=== PATIENT | female | born 2000 | race Caucasian/White ===

== ENCOUNTER 2018-05-04 19:19 | Outpatient (CLI) | payer MEDICAID | END 2018-05-04 19:20 | disposition critical access hospital (66) | LOC: EMS 19:19 | PROVIDERS: ATTEND Surgery | DX: R56.9 Unspecified convulsions (principal) | CPT/HCPCS: A0425; A0427; A0999 ==

== ENCOUNTER 2018-05-04 19:34 | Emergency (ER) | payer MEDICAID ==
[2018-05-04] MEDS ORDERED: SODIUM CHLORIDE 0.9% 1,000 ML IV ONE (20:17)
--- NOTE | 2018-05-04 20:20 | ED Physician Documentation ---
PD HPI SEIZURE - Stated complaint Stated Complaint: SEIZURE - Chief complaint Chief Complaint: Neuro - History obtained from History obtained from: Patient, Family - History of Present Illness Timing - onset: Today Witnessed: Witnessed Number of seizures: Single, Lasted minutes Description of seizure activity: Focal Injury during seizure: None History of seizures: First seizure Contributing factors: Sleep deprivation Similar symptoms before: Has not had sx before Recently seen: Not recently seen - Additional information Additional information: Patient is a 17 year old female presenting to the emergency department for seizure like activity. Family reports that the patient has a history of severe anxiety and commonly has night terrors. Family reports that at the end of the night terror today the patient had screamed out and when the family came in the room patients arms were shaking to the right and her eyes seemed to be rolled back. the episode lasted a few seconds before the patient came to. Patient states that she was up all night writing and was trying to sleep in a hot, non ventilated room. Review of Systems Constitutional: denies: Fever, Chills Eyes: denies: Photophobia Cardiac: denies: Chest pain / pressure, Palpitations Respiratory: denies: Dyspnea, Cough GI: denies: Nausea, Vomiting : denies: Dysuria, Frequency Neurologic: reports: Seizure, Headache Immunocompromised: denies: Immunocompromised PD PAST MEDICAL HISTORY - Past Medical History Past Medical History: No GI: GERD Psych: Anxiety Other Past Medical History: Autism, night terrors. - Past Surgical History Past Surgical History: No - Present Medications Home Medications: Ambulatory Orders Medication Instructions Recorded Confirmed No Known Home Medications [No 05/04/18 05/04/18 Known Home Medications] - Allergies Allergies/Adverse Reactions: Allergies Allergy/AdvReac Type Severity Reaction Status Date / Time No Known Drug Allergies Allergy Verified 05/04/18 19:41 - Social History Does the pt smoke?: No Smoking Status: Never smoker Does the pt drink ETOH?: No Does the pt have substance abuse?: No PD ED PE NORMAL - Vitals Vital signs reviewed: Yes - General General: Alert and oriented X 3, No acute distress - HEENT HEENT: Atraumatic, PERRL, Ears normal, Moist mucous membranes - Neck Neck: Supple, no meningeal sign - Cardiac Cardiac: RRR, No murmur, No rub - Respiratory Respiratory: No respiratory distress - Abdomen Abdomen: Soft - Derm Derm: Normal color, Warm and dry, No rash - Extremities Extremities: No deformity - Neuro Neuro: Alert and oriented X 3, senior treasury analyst 2-12 intact, No motor deficit, Normal speech Eye Opening: Spontaneous Motor: Obeys Commands Verbal: Oriented GCS Score: 15 Results - Vitals Vitals: Vital Signs - 24 hr 05/04/18 05/04/18 05/04/18 19:37 21:50 23:05 Temperature 36.9 C 36.8 C Heart Rate 111 H 82 85 Respiratory 18 20 16 Rate Blood Pressure 116/75 110/78 113/71 O2 Saturation 96 98 99 Oxygen O2 Source Room air - Labs Labs: Laboratory Tests 05/04/18 05/04/18 05/04/18 20:30 20:30 20:30 WBC 9.7 RBC 4.53 Hgb 12.3 Hct 35.5 L MCV 78.3 L MCH 27.2 MCHC 34.7 RDW 14.4 Plt Count 432 MPV 8.1 Neut # (Auto) 7.6 H Lymph # (Auto) 1.4 L [place] # (Auto) 0.6 Eos # (Auto) 0.1 Baso # (Auto) 0.1 Absolute Nucleated RBC 0.00 Nucleated RBC % 0.0 Sodium 136 Potassium 3.4 L Chloride 102 Carbon Dioxide 26 Anion Gap 8.0 BUN 10 Creatinine 0.7 Estimated GFR (MDRD) 108 Glucose 97 Calcium 8.9 Phosphorus 2.8 Magnesium 2.2 Total Bilirubin 0.5 AST 24 ALT 13 Alkaline Phosphatase 72 Total Protein 7.4 Albumin 3.8 Globulin 3.6 Albumin/Globulin Ratio 1.1 Lipase 22 Urine Color YELLOW Urine Clarity HAZY Urine pH 5.5 Ur Specific [place] 1.025 Urine Protein NEGATIVE Urine Glucose (UA) NEGATIVE Urine Ketones NEGATIVE Urine Occult Blood LARGE H Urine Nitrite NEGATIVE Urine Bilirubin NEGATIVE Urine Urobilinogen 0.2 (NORMAL) Ur Leukocyte Esterase NEGATIVE Urine RBC 11-25 H Urine WBC 0-3 Ur Squamous Epith Cells MOD Squamous H Urine Bacteria Rare Ur Microscopic Review INDICATED Urine Culture Comments NOT INDICATED - Rads (name of study) ct head Radiology: Final report received (6.9 cm frontal lobe mass extending into bilateral ventricles causing mass effect) PD MEDICAL DECISION MAKING - ED course Complexity details: reviewed old records, reviewed results, re-evaluated patient , considered differential, d/w patient, d/w family ED course: Patient was seen and examined at bedside. Patient was awake, alert and oriented in no acute distress. Patient had no focal deficits. IV access was gained and labs were drawn. Urine was collected. imgagin was ordered. when patient returned from imaging results were reviewed. Patient was found to have a 6.9 cm mass with mass effect. [facility] neurology was contacted and the case was discussed with Dr. Lacey who recommended loading the patient and transferring. patient was loaded with keppra 1000mg and arrangements were made for transfer. - Sepsis Event Vital Signs: Vital Signs - 24 hr 05/04/18 05/04/18 05/04/18 19:37 21:50 23:05 Temperature 36.9 C 36.8 C Heart Rate 111 H 82 85 Respiratory 18 20 16 Rate Blood Pressure 116/75 110/78 113/71 O2 Saturation 96 98 99 Oxygen O2 Source Room air Departure - Departure Disposition: 02 Transfer Acute Care Hosp Clinical Impression: Seizure, Left frontal lobe mass Condition: Stable
[2018-05-04 20:46] LABS: BILIRUBIN,URINE NEGATIVE (NEGATIVE); GLUCOSE, URINE (UA) NEGATIVE (NEGATIVE); KETONES,URINE (UA) NEGATIVE (NEGATIVE); LEUKOCYTE ESTERASE, URINE NEGATIVE (NEGATIVE); NITRITE,URINE NEGATIVE (NEGATIVE); OCCULT BLOOD,URINE LARGE (NEGATIVE); PH,URINE 5.5 PH (5.0-7.5); PROTEIN,URINE NEGATIVE (NEGATIVE); UROBILINOGEN,URINE 0.2 (NORMAL) E.U./dL (NORMAL)
[2018-05-04 20:50] LABS: BASOPHILS # (AUTO) 0.1 10^3/uL (0.0-0.1); BASOPHILS % (AUTO) 0.9 %; EOSINOPHILS # (AUTO) 0.1 10^3/uL (0.0-0.7); EOSINOPHILS % (AUTO) 0.7 %; HGB - HEMOGLOBIN 12.3 g/dL (12.0-16.0); LYMPHOCYTES # (AUTO) 1.4 10^3/uL (1.5-3.5); LYMPHOCYTES % (AUTO) 14.1 %; MEAN CORPUSCULAR HEMOGLOBIN 27.2 pg (27.0-31.0); MEAN CORPUSCULAR HGB CONC 34.7 g/dL (32.0-36.0); MEAN CORPUSCULAR VOLUME 78.3 fL (81.0-99.0); MEAN PLATELET VOLUME 8.1 fL (7.9-10.8); MONOCYTES # (AUTO) 0.6 10^3/uL (0.0-1.0); NEUTROPHILS # (AUTO) 7.6 10^3/uL (1.5-6.6); NEUTROPHILS % (AUTO) 78.3 %; PLT - PLATELET COUNT 432 10^3/uL (130-450); RED BLOOD COUNT 4.53 10^6/uL (4.20-5.40); RED CELL DISTRIBUTION WIDTH 14.4 % (12.0-15.0); WHITE BLOOD COUNT 9.7 x10^3/uL (4.8-10.8)
[2018-05-04 20:52] LABS: CLARITY,URINE HAZY (CLEAR)
[2018-05-04 20:59] LABS: ALBUMIN 3.8 g/dL (3.2-5.5); ALBUMIN/GLOBULIN RATIO 1.1 (1.0-2.2); BILIRUBIN,TOTAL 0.5 mg/dL (0.2-1.0); CALCIUM 8.9 mg/dL (8.5-10.3); CREATININE 0.7 mg/dL (0.4-1.0); MAGNESIUM 2.2 mg/dL (1.7-2.8); PHOSPHORUS 2.8 mg/dL (2.5-4.6); TOTAL PROTEIN 7.4 g/dL (6.7-8.2)
[2018-05-04 21:03] LABS: BACTERIA,URINE Rare /HPF (None Seen); SQUAMOUS EPITHELIAL CELL,UR MOD Squamous (<= Few)
--- NOTE | 2018-05-04 21:59 | CT Report ---
Procedure Date: 05/04/2018 Accession Number: [id number] / [id number] Procedure: CT - Head W/O CPT Code: FULL RESULT: EXAM: CT HEAD EXAM DATE: 05/04/2018 09:20 PM. CLINICAL HISTORY: Seizure. COMPARISON: None. TECHNIQUE: Multiaxial CT images were obtained from the foramen magnum to the vertex. Reformats: Coronal. IV contrast: None. In accordance with CT protocol optimization, one or more of the following dose reduction techniques were utilized for this exam: automated exposure control, adjustment of mA and/or KV based on patient size, or use of iterative reconstructive technique. FINDINGS: Parenchyma: Along the frontal superior sagittal sinus region and extending into both anterior lateral ventricles is a lobulated mass which has maximal dimensions of 4.5 x 6.9 x 4.7 cm. Its primary density characteristics are those of fat with peripheral calcification. No intracranial hemorrhage. Ventricles: The right lateral ventricle is mildly dilated. Sinuses and Orbits: Imaged paranasal sinuses, orbits, and mastoids show no significant abnormality. Bones: No evidence of fracture or calvarial defect. Other: None. IMPRESSION: 1. 6.9 cm mass along the midline frontal brain extending into both lateral ventricles has a differential diagnosis of dermoid or atypical lipoma. Recommend MRI for further characterization. It causes mass effect on the right lateral ventricle and certainly could be the cause of the patient's seizure. RADIA
[2018-05-04] MEDS ORDERED: levETIRAcetam INJ 1,000 MG in SODIUM CHLORIDE 0.9% 100ML 100 ML IV STA (22:18)
[2018-05-04 23:05] VITALS: BP 113/71
== END 2018-05-05 00:33 | disposition short-term general hospital (02) ==
LOC: EDUNIT# → ED 19:34
DX: D43.0 Neoplasm of uncertain behavior of brain, supratentorial (principal); R56.9 Unspecified convulsions
CPT/HCPCS: 36415; 70450; 80053; 81001; 81003; 83690; 83735; 84100; 85025; 87086; 96361; 96365; 99284

== ENCOUNTER 2018-09-11 00:19 | Emergency (ER) | payer MEDICAID ==
--- NOTE | 2018-09-11 02:12 | ED Physician Documentation ---
PD HPI SKIN - Stated complaint Stated Complaint: RASH - Chief complaint Chief Complaint: Wound - History obtained from History obtained from: Patient, Family - History of Present Illness Timing - onset: How many days ago (2) Timing - duration: Days (2) Timing - details: Gradual onset, Still present Location: RLE, LLE Quality / character: Itchy Associated symptoms: Headache (similar to always). 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 Apparently she becomes grouchy with the Keppra. She is on her third week of increasing the lamictal and she has decreased her keppra by 500mg this week. The patient has developed a rash over the knees bilaterally that is slightly itchy and has progressed. She denies any involvement of the mucous membranes she denies any shortness of breath and she denies any other symptoms to suggest overactive immune system. Review of Systems Constitutional: denies: Fever, Chills, Myalgias, Fatigue Eyes: denies: Decreased vision Ears: denies: Ear pain Nose: denies: Congestion Throat: denies: Sore throat Cardiac: denies: Chest pain / pressure, Palpitations Respiratory: denies: Dyspnea, Cough GI: denies: Abdominal Pain, Nausea, Vomiting, Constipation, Diarrhea : denies: Dysuria, Frequency Skin: reports: Rash Musculoskeletal: denies: Neck pain, Back pain, Extremity pain Neurologic: denies: Generalized weakness, Focal weakness, Numbness PD PAST MEDICAL HISTORY - Past Medical History Past Medical History: Yes Neuro: Seizure disorder GI: GERD Psych: Anxiety - Past Surgical History Past Surgical History: No - Present Medications Home Medications: Ambulatory Orders Medication Instructions Recorded Confirmed No Known Home Medications 05/04/18 05/04/18 - Allergies Allergies/Adverse Reactions: Allergies Allergy/AdvReac Type Severity Reaction Status Date / Time No Known Drug Allergies Allergy Verified 09/11/18 00:27 - Social History Does the pt smoke?: No Smoking Status: Never smoker Does the pt drink ETOH?: No Does the pt have substance abuse?: No - Immunizations Immunizations are current?: Yes - POLST Patient has POLST: No PD ED PE NORMAL - Vitals Vital signs reviewed: Yes (normal ) - General General: Alert and oriented X 3, No acute distress, Well developed/nourished - HEENT HEENT: Atraumatic, PERRL, EOMI - Neck Neck: Supple, no meningeal sign, No bony TTP - Cardiac Cardiac: RRR, No murmur - Respiratory Respiratory: No respiratory distress, Clear bilaterally - Abdomen Abdomen: Normal bowel sounds, Soft, Non tender - Back Back: No CVA TTP, No spinal TTP - Derm Derm: Normal color, Warm and dry, Other (There are multiple 0.5cm pustules over the anterior thigh distally and extending to the pre-patellar area. ) - Extremities Extremities: No deformity, No edema - Neuro Neuro: Alert and oriented X 3, car pusher 2-12 intact, No motor deficit, No sensory deficit, Normal speech Eye Opening: Spontaneous Motor: Obeys Commands Verbal: Oriented GCS Score: 15 - Psych Psych: Normal mood, Normal affect Results - Vitals Vitals: Vital Signs - 24 hr 09/11/18 09/11/18 00:22 02:21 Temperature 36.7 C Heart Rate 92 72 Respiratory 17 16 Rate Blood Pressure 109/67 117/80 O2 Saturation 97 99 Oxygen O2 Source Room air PD MEDICAL DECISION MAKING - ED course Complexity details: considered differential, d/w patient, d/w family, d/w method consultant (will call order clerk neurologist [facility] recommends d/c of lamictal and restart to prior dose of keppra. ) ED course: 17-year-old female who is being titrated up on Lamictal and titrated down on her Keppra has developed a nonspecific rash over her anterior thigh and knee bilaterally. She does not have other signs and symptoms to be concerned for life-threatening rash associated with Lamictal. Her neurologist at [facility] is consulted by telephone and she recommends that we discontinue the Lamictal and move her dose back to its prior for her Keppra. The patient is in agreement with this and will follow up with her neurologist for further medication adjustments. Departure - Departure Disposition: 01 Home, Self Care Clinical Impression: Drug-induced skin rash Condition: Stable Instructions: ED Drug React Allergic Follow-Up: Freda Magana [Other] Comments: Today it appears you have a rash associated with Lamictal and you will need to discontinue the Lamictal. Please contact your neurologist about alternatives. In the meantime increase her dose of Keppra back to 1000 mg twice per day. Take Benadryl 25-50 mg every 6 hours for the next 2 days. If you develop increasing symptoms of aches fever and rash return to the emergency department. Discharge Date/Time: 09/11/18 02:28
[2018-09-11 02:23] VITALS: BP 117/80
== END 2018-09-11 02:28 | disposition home or self-care (01) ==
LOC: ED 00:19
DX: L27.0 Generalized skin eruption due to drugs and medicaments taken internally (principal); G40.909 Epilepsy, unspecified, not intractable, without status epilepticus
CPT/HCPCS: 99283

== ENCOUNTER 2019-01-03 18:35 | Emergency (ER) | payer MEDICAID ==
--- NOTE | 2019-01-03 18:52 | ED Physician Documentation ---
PD HPI URI - Stated complaint Stated Complaint: FEVER/FLU SYMP - Chief complaint Chief Complaint: Resp - History obtained from History obtained from: Patient, Family (mom) - History of Present Illness Timing - onset: Other (This is a 18-year-old woman with history of epilepsy maintained on oxcarbazepine. She has been sick for 5 days with cough, runny nose, sore throat body aches and chills without measured fevers. Increasing nonproductive cough now. Mom was concerned that her seizure frequency was going up but today had an episode where she was looking at a sweater and seemed confused but there was no actual seizure activity.) Review of Systems Constitutional: reports: Fever, Chills Nose: reports: Rhinorrhea / runny nose Throat: reports: Sore throat Respiratory: reports: Cough. denies: Dyspnea GI: denies: Abdominal Pain : denies: Now EGA PD PAST MEDICAL HISTORY - Past Medical History Neuro: Seizure disorder GI: GERD Psych: Anxiety - Past Surgical History Past Surgical History: No - Present Medications Home Medications: Ambulatory Orders Medication Instructions Recorded Confirmed Folic Acid 1 mg PO DAILY 01/03/19 01/03/19 OXcarbazepine [Oxcarbazepine] 300 mg PO 01/03/19 clonazePAM [Clonazepam] 0.5 mg PO 01/03/19 hydrOXYzine HCl [Hydroxyzine HCl] 10 mg PO 01/03/19 01/03/19 - Allergies Allergies/Adverse Reactions: Allergies Allergy/AdvReac Type Severity Reaction Status Date / Time No Known Drug Allergies Allergy Verified 01/03/19 18:41 - Social History Does the pt smoke?: No Smoking Status: Never smoker Does the pt drink ETOH?: No Does the pt have substance abuse?: No - Immunizations Immunizations are current?: Yes - POLST Patient has POLST: No PD ED PE NORMAL - Vitals Vital signs reviewed: Yes - General General: Alert and oriented X 3, No acute distress, Well developed/nourished - HEENT HEENT: PERRL, Ears normal, Moist mucous membranes, Pharynx benign - Neck Neck: Supple, no meningeal sign, No bony TTP - Cardiac Cardiac: RRR, No murmur - Respiratory Respiratory: No respiratory distress, Clear bilaterally - Abdomen Abdomen: Non tender - Derm Derm: No rash - Neuro Neuro: Alert and oriented X 3, Normal speech - Psych Psych: Normal mood, Normal affect Results - Vitals Vitals: Vital Signs - 24 hr 01/03/19 18:39 Temperature 36.7 C Heart Rate 95 Respiratory 20 Rate Blood Pressure 110/75 O2 Saturation 97 Oxygen O2 Source Room air - Rads (name of study) 2v chest Radiology: EMP read contemporaneously (PB rabia) Departure - Departure Disposition: 01 Home, Self Care Clinical Impression: Upper respiratory tract infection Qualifiers: URI type: unspecified viral URI Qualified Code(s): J06.9 - Acute upper respiratory infection, unspecified Condition: Good Record reviewed to determine appropriate education?: Yes Instructions: ED Viral Syndrome Comments: She should be better in another day or 2, return for new or worsening symptoms.
--- NOTE | 2019-01-03 19:40 | XRAY Report ---
Reason: coughq Procedure Date: 01/03/2019 Accession Number: [id number] / [id number] Procedure: XR - Chest 2 View X-Ray CPT Code: 17091 FULL RESULT: EXAM: CHEST RADIOGRAPHY EXAM DATE: 01/03/2019 07:24 PM. CLINICAL HISTORY: Coughing. COMPARISON: None. TECHNIQUE: 2 views. FINDINGS: Lungs/Pleura: No consolidation. Minimal bilateral peribronchial thickening. No pleural effusion or pneumothorax Mediastinum: Heart and mediastinal contours are unremarkable. Other: None. IMPRESSION: Minimal bilateral peribronchial thickening may represent viral illness and/or reactive airways disease. RADIA
[2019-01-03 19:51] VITALS: BP 122/75
== END 2019-01-03 19:51 | disposition home or self-care (01) ==
LOC: ED 18:35
DX: J06.9 Acute upper respiratory infection, unspecified (principal); B97.89 Other viral agents as the cause of diseases classified elsewhere
CPT/HCPCS: 71046; 99282; 99283

== ENCOUNTER 2019-02-20 09:55 | Outpatient (CLI) | payer MEDICAID ==
[2019-02-20 12:40] LABS: BASOPHILS # (AUTO) 0.1 10^3/uL (0.0-0.1); EOSINOPHILS # (AUTO) 0.1 10^3/uL (0.0-0.7); EOSINOPHILS % (AUTO) 1.3 %; HGB - HEMOGLOBIN 11.9 g/dL (12.0-16.0); LYMPHOCYTES # (AUTO) 1.8 10^3/uL (1.5-3.5); LYMPHOCYTES % (AUTO) 19.3 %; MEAN CORPUSCULAR HEMOGLOBIN 26.1 pg (27.0-31.0); MEAN CORPUSCULAR HGB CONC 32.9 g/dL (32.0-36.0); MEAN CORPUSCULAR VOLUME 79.3 fL (81.0-99.0); MEAN PLATELET VOLUME 8.3 fL (7.9-10.8); MONOCYTES # (AUTO) 0.5 10^3/uL (0.0-1.0); MONOCYTES % (AUTO) 5.3 %; NEUTROPHILS # (AUTO) 6.8 10^3/uL (1.5-6.6); NEUTROPHILS % (AUTO) 73.1 %; PLT - PLATELET COUNT 410 10^3/uL (130-450); RED BLOOD COUNT 4.56 10^6/uL (4.20-5.40); RED CELL DISTRIBUTION WIDTH 15.2 % (12.0-15.0); WHITE BLOOD COUNT 9.3 x10^3/uL (4.8-10.8)
== END 2019-02-20 23:59 | disposition home or self-care (01) ==
LOC: LAB.N 09:55
PROVIDERS: ATTEND Nurse Practitioner Gerontology
DX: D69.1 Qualitative platelet defects (principal)
CPT/HCPCS: 36415; 85025

== ENCOUNTER 2019-02-24 02:46 | Outpatient (CLI) | payer MEDICAID | END 2019-02-24 02:47 | disposition critical access hospital (66) | LOC: EMS 02:46 | PROVIDERS: ATTEND Surgery | DX: R07.9 Chest pain, unspecified (principal); R68.84 Jaw pain; M79.601 Pain in right arm; R56.9 Unspecified convulsions | CPT/HCPCS: A0425; A0429; A0999 ==

== ENCOUNTER 2019-02-24 03:03 | Emergency (ER) | payer MEDICAID ==
--- NOTE | 2019-02-24 03:09 | ED Physician Documentation ---
PD HPI CHEST PAIN - Stated complaint Stated Complaint: CHEST PAIN - History obtained from History obtained from: Patient, Family, EMS - History of Present Illness Timing - onset: How many minutes ago (approximately 30-40 minutes [employer]VERTISING [employer]ASING [employer]ENT) Timing - onset during: Sleep Timing - details: Abrupt onset Pain level now: 0 Quality: Pain Location: Right chest Radiation: Jaw, Right upper extremity Improved by: Other (resolved en route to ED without specific intervention) Worsened by: Other (no apparent exacerbating factors) Recently seen: Not recently seen - Additional information Additional information: patient had symptoms c/w her previous seizures (focal, and thus no LOC) but associated with right-sided chest pain that radiated to neck/jaw and RUE, which she had not had before. blood sugar by EMS en route was 120. Review of Systems Constitutional: denies: Fever, Chills, Sweats Cardiac: reports: Chest pain / pressure. denies: Palpitations, Pedal edema, Calf pain Respiratory: denies: Dyspnea, Cough GI: denies: Abdominal Pain, Nausea, Vomiting Musculoskeletal: denies: Extremity swelling Neurologic: denies: Generalized weakness, Focal weakness, Numbness, Headache PD PAST MEDICAL HISTORY - Past Medical History Neuro: Seizure disorder GI: GERD Psych: Anxiety - Past Surgical History Past Surgical History: No - Present Medications Home Medications: Ambulatory Orders Medication Instructions Recorded Confirmed Folic Acid 1 mg PO DAILY 01/03/19 01/03/19 OXcarbazepine [Oxcarbazepine] 300 mg PO 01/03/19 clonazePAM [Clonazepam] 0.5 mg PO 01/03/19 - Allergies Allergies/Adverse Reactions: Allergies Allergy/AdvReac Type Severity Reaction Status Date / Time No Known Drug Allergies Allergy Verified 02/24/19 03:10 - Social History Does the pt smoke?: No Smoking Status: Never smoker Does the pt drink ETOH?: No Does the pt have substance abuse?: No - Immunizations Immunizations are current?: Yes - POLST Patient has POLST: No PD ED PE NORMAL - Vitals Vital signs reviewed: Yes - General General: Alert and oriented X 3, No acute distress, Well developed/nourished - HEENT HEENT: PERRL, EOMI - Neck Neck: Supple, no meningeal sign - Cardiac Cardiac: No murmur, No gallop, No rub - Respiratory Respiratory: No respiratory distress, Clear bilaterally - Abdomen Abdomen: Soft, Non tender - Extremities Extremities: No edema - Neuro Neuro: Alert and oriented X 3, mobile designer 2-12 intact, No motor deficit, No sensory deficit, Normal speech Eye Opening: Spontaneous Motor: Obeys Commands Verbal: Oriented GCS Score: 15 PD ED PE EXPANDED - Cardiac Cardiac: Tachy, Regular Rhythm Results - Vitals Vitals: Vital Signs - 24 hr 02/24/19 02/24/19 02/24/19 03:04 03:30 04:36 Temperature 36.9 C Heart Rate 111 H 103 H 106 H Respiratory 16 18 18 Rate Blood Pressure 125/79 125/79 109/71 O2 Saturation 96 97 96 02/24/19 05:51 Temperature Heart Rate 86 Respiratory 22 Rate Blood Pressure 101/66 O2 Saturation 97 Oxygen O2 Source Room air - EKG (time done) No standard instances Rate: Rate (enter#) (110) Rhythm: Sinus tachycardia [place]: Normal Intervals: Normal NM QRS: Normal Ischemia: Normal ST segments - Labs Labs: Laboratory Tests 02/24/19 02/24/19 02/24/19 03:40 03:40 03:40 WBC 10.5 RBC 4.65 Hgb 12.2 Hct 36.4 L MCV 78.2 L MCH 26.1 L MCHC 33.4 RDW 14.7 Plt Count 455 H MPV 7.7 L Neut # (Auto) 8.2 H Lymph # (Auto) 1.5 [place] # (Auto) 0.6 Eos # (Auto) 0.1 Baso # (Auto) 0.1 Absolute Nucleated RBC 0.00 Nucleated RBC % 0.0 D-Dimer 225.7 Sodium 136 Potassium 3.8 Chloride 98 L Carbon Dioxide 24 Anion Gap 14.0 H BUN 10 Creatinine 0.6 Estimated GFR (MDRD) 127 Glucose 108 H Calcium 9.1 Total Bilirubin 0.2 AST 24 ALT 10 Alkaline Phosphatase 102 Total Protein 7.4 Albumin 3.9 Globulin 3.5 Albumin/Globulin Ratio 1.1 Lipase 22 PD MEDICAL DECISION MAKING - ED course Complexity details: reviewed old records, reviewed results, re-evaluated patient, considered differential, d/w patient, d/w family Departure - Departure Disposition: 01 Home, Self Care Clinical Impression: Chest pain Qualifiers: Chest pain type: unspecified Qualified Code(s): R07.9 - Chest pain, unspecified Condition: Good Instructions: ED Chest Pain Atypical Unkn Cause Follow-Up: Gruenwald,Bertha S, VICE INVESTIGATOR [Primary Care Provider] - Discharge Date/Time: 02/24/19 05:58
[2019-02-24 03:52] LABS: BASOPHILS # (AUTO) 0.1 10^3/uL (0.0-0.1); BASOPHILS % (AUTO) 0.7 %; EOSINOPHILS # (AUTO) 0.1 10^3/uL (0.0-0.7); EOSINOPHILS % (AUTO) 0.6 %; HGB - HEMOGLOBIN 12.2 g/dL (12.0-16.0); LYMPHOCYTES # (AUTO) 1.5 10^3/uL (1.5-3.5); MEAN CORPUSCULAR HEMOGLOBIN 26.1 pg (27.0-31.0); MEAN CORPUSCULAR HGB CONC 33.4 g/dL (32.0-36.0); MEAN CORPUSCULAR VOLUME 78.2 fL (81.0-99.0); MEAN PLATELET VOLUME 7.7 fL (7.9-10.8); MONOCYTES # (AUTO) 0.6 10^3/uL (0.0-1.0); MONOCYTES % (AUTO) 6.2 %; NEUTROPHILS # (AUTO) 8.2 10^3/uL (1.5-6.6); NEUTROPHILS % (AUTO) 78.5 %; PLT - PLATELET COUNT 455 10^3/uL (130-450); RED BLOOD COUNT 4.65 10^6/uL (4.20-5.40); RED CELL DISTRIBUTION WIDTH 14.7 % (12.0-15.0); WHITE BLOOD COUNT 10.5 x10^3/uL (4.8-10.8)
[2019-02-24 04:01] LABS: ALBUMIN 3.9 g/dL (3.2-5.5); ALBUMIN/GLOBULIN RATIO 1.1 (1.0-2.2); BILIRUBIN,TOTAL 0.2 mg/dL (0.2-1.0); CALCIUM 9.1 mg/dL (8.5-10.3); CREATININE 0.6 mg/dL (0.4-1.0); TOTAL PROTEIN 7.4 g/dL (6.7-8.2)
--- NOTE | 2019-02-24 04:12 | XRAY Report ---
Reason: chest pain Procedure Date: 02/24/2019 Accession Number: [id number] / [id number] Procedure: XR - Chest 2 View X-Ray CPT Code: 12113 FULL RESULT: EXAM: CHEST RADIOGRAPHY EXAM DATE: 02/24/2019 03:54 AM. CLINICAL HISTORY: Chest pain COMPARISON: CHEST 2 VIEW 01/03/2019 7:17 PM. TECHNIQUE: 2 views. FINDINGS: Lungs/Pleura: No focal opacities evident. No pleural effusion. No pneumothorax. Normal volumes. Mediastinum: Heart and mediastinal contours are unremarkable. Other: None. IMPRESSION: Normal 2-view chest radiography. RADIA
[2019-02-24 05:52] VITALS: BP 101/66
== END 2019-02-24 05:58 | disposition home or self-care (01) ==
LOC: EDUNIT# → ED 03:03
DX: R07.9 Chest pain, unspecified (principal)
CPT/HCPCS: 36415; 71046; 80053; 83690; 85025; 85379; 93005; 99283

== ENCOUNTER 2019-04-07 09:24 | Emergency (ER) | payer MEDICAID ==
[2019-04-07 09:34] VITALS: BP 116/75
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
== END 2019-04-07 10:36 | disposition home or self-care (01) ==
LOC: ED 09:24
DX: S09.90XA Unspecified injury of head, initial encounter (principal); W20.8XXA Other cause of strike by thrown, projected or falling object, initial encounter; G40.909 Epilepsy, unspecified, not intractable, without status epilepticus; Z86.011 Personal history of benign neoplasm of the brain; Z72.89 Other problems related to lifestyle
CPT/HCPCS: 96361; 96365; 99282